=== PATIENT | female | born 1975 | race Caucasian/White ===

== ENCOUNTER 2018-05-23 19:03 | Emergency (ER) | payer BC ==
[~2018-05-23] VITALS: Ht 152.4 cm; Wt 70.2 kg
[2018-05-23 19:26] VITALS: BP 132/92
== END 2018-05-23 21:04 | disposition home or self-care (01) ==
LOC: ER 19:04
DX: S61.213A Laceration without foreign body of left middle finger without damage to nail, initial encounter (principal); Z88.1 Allergy status to other antibiotic agents; Z88.8 Allergy status to other drugs, medicaments and biological substances; W26.8XXA Contact with other sharp object(s), not elsewhere classified, initial encounter; Y93.89 Activity, other specified; Y92.89 Other specified places as the place of occurrence of the external cause; Y99.8 Other external cause status
CPT/HCPCS: 12001; 99283